=== PATIENT | male | born 1960 | race Caucasian/White ===

== ENCOUNTER 2022-07-18 05:34 | Day surgery (SDC) | payer BC ==
[2022-07-14 11:51] VITALS: BMI 38.0
[2022-07-18] MEDS ORDERED: BUPIVACAINE HCL/PF 0.5% (5MG/ML) 10 ML VIAL ONE (07:07)
[2022-07-18] MEDS ORDERED: MIDAZOLAM HCL 2 MG/2 ML SINGLE DOSE VIAL ONE (07:29)
[2022-07-18] MEDS ORDERED: LIDOCAINE HCL/PF 2% SDV 5ML VIAL ONE (07:30)
[2022-07-18] MEDS ORDERED: PROPOFOL 40 ML ONE (07:30)
[2022-07-18] MEDS ORDERED: oxyCODONE HCL 5 MG TABLET PO PRN (08:27)
[2022-07-18] MEDS ORDERED: ONDANSETRON 4 MG/2 ML VIAL IVPUSH PRN (08:27)
[2022-07-18] MEDS ORDERED: ACETAMINOPHEN 1000 MG/100 ML BAG IVPB ONE (08:28)
[2022-07-18] MEDS ORDERED: LACTATED RINGERS SOLUTION 1,000 ML IV SCH (08:30)
[2022-07-18] MEDS ORDERED: ACETAMINOPHEN INJECTION 100 ML IVPB ONE (09:17)
[2022-07-18 09:53] VITALS: RESP 18
[2022-07-18 11:30] VITALS: BP 129/76; PULSE 65; TEMP 98
== END 2022-07-18 11:15 | disposition home or self-care (01) ==
LOC: JASU-SURG 05:34
PROVIDERS: ATTEND Orthopaedic Surgery
PROC: 0SBD4ZZ Excision of Left Knee Joint, Percutaneous Endoscopic Approach (ICD-10-PCS; principal; 2022-07-18 07:30)
DX: M23.92 Unspecified internal derangement of left knee (principal)
CPT/HCPCS: 94760